=== PATIENT | female | born 1960 | race Caucasian/White ===

== ENCOUNTER → 2023-06-12 11:33 | Outpatient (CLI) | payer OTHER, SELFPAY ==
[2023-06-12 11:55] LABS: Hematocrit 38.1 % (36-46); Hemoglobin 12.9 g/dL (12.0-16.0); Mean Corpuscular HGB Conc 33.9 % (30-36); Mean Corpuscular Hemoglobin 30.4 PG (26-34); Mean Corpuscular Volume 89.6 fL (80-100); Platelet Count 211 X10^3/uL (150-400); Red Blood Cell Count 4.26 X10^6/uL (4.0-5.2); Red Cell Distribution Width 14.1 % (11.6-14.8)
[2023-06-12 12:12] LABS: Alanine Aminotransferase 34 IU/L (<35); Albumin 4.4 g/dL (3.5-5.0); Albumin Globulin Ratio 1.3 (1.0-2.8); Alkaline Phosphatase 63 U/L (38-126); Aspartate Aminotransferase 44 IU/L (14-36); BUN Creatinine Ratio 26.6 (6-22); Bilirubin Total 0.5 mg/dL (0.2-1.3); Blood Urea Nitrogen 21 mg/dL (7-17); Carbon Dioxide 31 mmol/L (22-32); Chloride 103 mmol/L (98-107); Cholesterol 167 mg/dL (140-199); Estimated Glomerular Filt Rate > 60 mL/min (>60); Globulin 3.3 g/dL (1.7-4.1); Glucose 98 mg/dL (80-110); HDL Cholesterol 75 mg/dL (40-60); HEMOLYSIS < 15 (0-50); LDL Cholesterol Calculated 71 mg/dL (<100); Potassium 4.3 mmol/L (3.4-5.1); Sodium 140 mmol/L (137-145); Total Protein 7.7 g/dL (6.3-8.2); Triglycerides 105 mg/dL (35-150)
[2023-06-12 12:38] LABS: TSH w/ Reflex to FT4 2.19 uIU/mL (0.47-4.68)
[2023-06-14 16:36] LABS: Lamotrigine Lamictal 9.3 ug/mL (2.0-20.0)
== END ==
LOC: LAB 11:34
PROVIDERS: PCP Internal Medicine; Referring Provider Internal Medicine; Visit Provider Internal Medicine
DX: E78.2 Mixed hyperlipidemia (principal); G40.909 Epilepsy, unspecified, not intractable, without status epilepticus
CPT/HCPCS: 36415; 80053; 80061; 80175; 84443; 85027

== ENCOUNTER → 2024-07-30 15:33 | Outpatient (CLI) | payer OTHER, SELFPAY ==
[2024-07-30 15:45] LABS: Hematocrit 38.3 % (36-46); Hemoglobin 12.8 g/dL (12.0-16.0); Mean Corpuscular HGB Conc 33.3 % (30-36); Mean Corpuscular Hemoglobin 29.4 PG (26-34); Mean Corpuscular Volume 88.1 fL (80-100); Platelet Count 199 X10^3/uL (150-400); Red Blood Cell Count 4.35 X10^6/uL (4.0-5.2); Red Cell Distribution Width 14.4 % (11.6-14.8); White Blood Cell Count 5.5 X10^3/uL (4.5-11.0)
[2024-07-30 16:29] LABS: Alanine Aminotransferase 21 IU/L (<35); Albumin 4.3 g/dL (3.5-5.0); Albumin Globulin Ratio 1.7 (1.0-2.8); Alkaline Phosphatase 71 U/L (38-126); Aspartate Aminotransferase 29 IU/L (14-36); BUN Creatinine Ratio 19.8 (6-22); Bilirubin Total 0.5 mg/dL (0.2-1.3); Blood Urea Nitrogen 17 mg/dL (7-17); Calcium 9.9 mg/dL (8.4-10.2); Carbon Dioxide 29 mmol/L (22-32); Chloride 104 mmol/L (98-107); Cholesterol 153 mg/dL (140-199); Estimated Glomerular Filt Rate > 60 mL/min (>60); Globulin 2.6 g/dL (1.7-4.1); Glucose 105 mg/dL (80-110); HDL Cholesterol 77 mg/dL (40-60); HEMOLYSIS < 15 (0-50); LDL Cholesterol Calculated 65 mg/dL (<100); Sodium 141 mmol/L (137-145); Total Protein 6.9 g/dL (6.3-8.2); Triglycerides 57 mg/dL (35-150)
== END ==
LOC: LAB 15:34
PROVIDERS: PCP Internal Medicine; Referring Provider Internal Medicine; Visit Provider Internal Medicine
DX: E78.2 Mixed hyperlipidemia (principal); G40.909 Epilepsy, unspecified, not intractable, without status epilepticus
CPT/HCPCS: 36415; 80053; 80061; 80175; 85027

== ENCOUNTER → 2024-09-30 16:53 | Outpatient (CLI) | payer OTHER, SELFPAY ==
[2024-09-30 18:05] LABS: Hematocrit 32.1 % (36-46); Hemoglobin 10.8 g/dL (12.0-16.0); Mean Corpuscular HGB Conc 33.5 % (30-36); Mean Corpuscular Hemoglobin 28.1 PG (26-34); Mean Corpuscular Volume 83.9 fL (80-100); Platelet Count 350 X10^3/uL (150-400); Red Blood Cell Count 3.83 X10^6/uL (4.0-5.2); Red Cell Distribution Width 14.1 % (11.6-14.8); White Blood Cell Count 15.2 X10^3/uL (4.5-11.0)
[2024-09-30 18:23] LABS: Alanine Aminotransferase 20 IU/L (<35); Albumin 3.5 g/dL (3.5-5.0); Albumin Globulin Ratio 1.2 (1.0-2.8); Alkaline Phosphatase 115 U/L (38-126); Aspartate Aminotransferase 29 IU/L (14-36); Bilirubin Total 0.6 mg/dL (0.2-1.3); Blood Urea Nitrogen 17 mg/dL (7-17); Calcium 9.8 mg/dL (8.4-10.2); Carbon Dioxide 27 mmol/L (22-32); Chloride 96 mmol/L (98-107); Estimated Glomerular Filt Rate > 60 mL/min (>60); Glucose 112 mg/dL (70-99); HEMOLYSIS < 15 (0-50); Potassium 3.8 mmol/L (3.4-5.1); Sodium 135 mmol/L (137-145); Total Protein 6.5 g/dL (6.3-8.2)
[2024-09-30 18:40] LABS: C-Reactive Protein Quant 21.6 mg/dL (<1.0)
[2024-09-30 18:42] LABS: Erythrocyte Sedimentation Rate 70 MM/HR (0-20)
[2024-09-30 19:02] LABS: TSH w/ Reflex to FT4 2.36 uIU/mL (0.47-4.68)
[2024-10-05 10:36] LABS: Lamotrigine Lamictal 12.8 ug/mL (2.0-20.0)
== END ==
PROVIDERS: PCP Internal Medicine; Referring Provider Internal Medicine; Visit Provider Internal Medicine
DX: R11.2 Nausea with vomiting, unspecified (principal); G40.909 Epilepsy, unspecified, not intractable, without status epilepticus
CPT/HCPCS: 36415; 80053; 80175; 84443; 85027; 85651; 86140

== ENCOUNTER → 2024-10-06 10:07 | Outpatient (CLI) | payer OTHER, SELFPAY ==
[2024-10-06 11:09] LABS: Add Manual Diff / Slide Review NO; Basophils Absolute Auto 0 /uL (0-100); Basophils Percent Auto 0.2 % (0-2); Eosinophils Absolute Auto 0 /uL (0-450); Eosinophils Percent Auto 0.1 % (2-4); Hematocrit 31.2 % (36-46); Hemoglobin 10.7 g/dL (12.0-16.0); Lymphocytes Absolute Auto 800 /uL (1100-4500); Lymphocytes Percent Auto 5.6 % (25-40); Mean Corpuscular HGB Conc 34.2 % (30-36); Mean Corpuscular Hemoglobin 28.6 PG (26-34); Mean Corpuscular Volume 83.8 fL (80-100); Monocytes Absolute Auto 800 /uL (0-900); Monocytes Percent Auto 5.5 % (3-14); Neutrophils Absolute Auto 13200 /uL (1500-7000); Neutrophils Percent Auto 88.6 % (50-75); Platelet Count 319 X10^3/uL (150-400); Red Blood Cell Count 3.72 X10^6/uL (4.0-5.2); Red Cell Distribution Width 14.3 % (11.6-14.8)
[2024-10-06 11:22] LABS: Alanine Aminotransferase 25 IU/L (<35); Albumin 3.2 g/dL (3.5-5.0); Albumin Globulin Ratio 1.1 (1.0-2.8); Alkaline Phosphatase 99 U/L (38-126); Aspartate Aminotransferase 32 IU/L (14-36); BUN Creatinine Ratio 16.7 (6-22); Bilirubin Total 0.6 mg/dL (0.2-1.3); Blood Urea Nitrogen 14 mg/dL (7-17); Calcium 9.4 mg/dL (8.4-10.2); Carbon Dioxide 31 mmol/L (22-32); Chloride 96 mmol/L (98-107); Estimated Glomerular Filt Rate > 60 mL/min (>60); Globulin 2.8 g/dL (1.7-4.1); Glucose 116 mg/dL (70-99); HEMOLYSIS < 15 (0-50); Potassium 3.3 mmol/L (3.4-5.1); Sodium 136 mmol/L (137-145)
[2024-10-06 11:23] LABS: Erythrocyte Sedimentation Rate 72 MM/HR (0-20); Lipase 46 U/L (23-300)
[2024-10-06 11:40] LABS: C-Reactive Protein Quant 14.1 mg/dL (<1.0)
== END ==
PROVIDERS: PCP Internal Medicine; Referring Provider Internal Medicine; Visit Provider Internal Medicine
DX: D72.829 Elevated white blood cell count, unspecified (principal); R11.2 Nausea with vomiting, unspecified
CPT/HCPCS: 36415; 80053; 83690; 85025; 85651; 86140

== ENCOUNTER → 2024-10-06 12:06 | Outpatient (CLI) | payer OTHER, SELFPAY ==
--- NOTE | 2024-10-06 12:07 | DI.CT.S_ITS ---
PROCEDURE: CT ABDOMEN PELVIS W CON INDICATIONS: abd pain TECHNIQUE: After the administration of intravenous contrast, axial sections acquired from the lung bases to the pubic symphysis. Coronal and sagittal reformats were performed. For radiation dose reduction, the following was used: automated exposure control, adjustment of mA and/or kV according to patient size. COMPARISON: Outside Facility, CT, CT ABDOMEN PELVIS W CON, 08/25/2024, 14:58. FINDINGS: Image quality: Diagnostic. Lower Chest: No significant findings. ABDOMEN: Liver: Steatosis. Stable low-attenuation focus. Gallbladder: Luminal stone without wall thickening. Biliary ducts: No biliary dilation. Pancreas: No ductal dilation. Spleen: Size is within normal limits. Adrenal Glands: No adrenal nodules. Kidneys and Ureters: Simple right renal cyst. In the interval since the prior exam, there is been development of moderate left hydronephrosis. There is prominence of the proximal ureter. Is a ureter extends into the pelvis, there is confluent areas of soft tissue density suspected to represent bowel loops. There is an area of 2 mm calcification which corresponds to location of ureter on the 08/25/2024 exam. Stomach and Bowel: There is appearance of mild thickening in the distal sigmoid colon. >> Peritoneum: No abnormal intraperitoneal fluid. No free air. Ventral Wall: No significant ventral hernia. Abdominal Nodes: No retroperitoneal or mesenteric adenopathy by size criteria. Vessels: Aorta and inferior vena cava are normal in size. PELVIS: Pelvic Organs: Unremarkable. Bladder: No bladder wall thickening, accounting for underdistention. Pelvic Nodes: No enlarged lymph nodes. Miscellaneous: No inguinal hernias are seen. Bones: No aggressive osseous abnormality. IMPRESSION: Interval development of left hydronephrosis and proximal hydroureter. Within the left pelvic sidewall there is confluent soft tissue density appearing to be most reflective of nondistended bowel loops. Oral contrast is not present within this region for better delineation of bowel loops or less likely development of new underlying mass. There is a 2 mm focus of calcification new compared to prior exam within this region suspected to represent ureteral stone. Recommend correlation to symptoms and laboratory values for possible ureteral calculus. In addition, mild thickening is present of the distal sigmoid possibly secondary to incomplete distention given normal appearance on 08/25/[address]24 CT. Dictated by: Syeda Anderson M.D. on 10/06/2024 at 14:52 Approved by: Syeda Anderson M.D. on 10/06/2024 at 15:00
== END ==
PROVIDERS: PCP Internal Medicine; Referring Provider Internal Medicine; Visit Provider Internal Medicine
DX: N13.30 Unspecified hydronephrosis (principal); K76.0 Fatty (change of) liver, not elsewhere classified; N28.1 Cyst of kidney, acquired; D72.829 Elevated white blood cell count, unspecified; R11.2 Nausea with vomiting, unspecified
CPT/HCPCS: 36415; 74177; 80053; 83690; 85025; 85651; 86140; Q9967

== ENCOUNTER 2024-10-09 11:46 | Day surgery (SDC) | payer OTHER, SELFPAY ==
--- NOTE | 2024-10-09 | PATH_ITS ---
[facility] Accession Number: [id number] No. of containers..02 Tissue . 01 Material submitted: . PART A: gastrointestinal site - GASTRIC, ANTRAL PART B: gastrointestinal site - GASTRIC, CORPUS . 01 Diagnosis: Part A: GASTRIC, ANTRAL: Gastric mucosa with minimal chronic inflammation. No Helicobacter organisms identified. No intestinal metaplasia, dysplasia, or malignancy identified. . Part B: GASTRIC, CORPUS: Gastric mucosa with no diagnostic alterations. No Helicobacter organisms identified on H/E stain. No intestinal metaplasia, dysplasia, or malignancy identified. STO 10/15/2024 1305 Local . 01 Electronically signed: . Isaiah Gallagher MD, Pathologist NPI- [id number] . 01 Gross description: . Part A: GASTRIC, ANTRAL: Received in formalin are 3 fragment(s) of sharpe, soft tissue measuring 0.1 x 0.1 x 0.1 cm to 0.3 x 0.3 x 0.2 cm submitted entirely in 1 cassette(s) . Part B: GASTRIC, CORPUS: Received in formalin are 3 fragment(s) of sharpe, soft tissue measuring 0.2 x 0.2 x 0.2 cm to 0.4 x 0.3 x 0.2 cm submitted entirely in 1 cassette(s) /JUAN RAMON 10/15/2024 1305 Local . 01 Microscopic: . Part A: GASTRIC, ANTRAL: An immunohistochemical stain was performed to evaluate for Helicobacter organisms and is negative. The control stains appropriately. * This test was developed and the performance characteristics were validated by [facility]. It has not been cleared or approved by the Food and Drug Administration. . 01 Pathologist provided ICD-10: K29.30 . 01 CPT . 000389, 102232, [id number] Specimen Comment: A courtesy copy of this report has been sent to [facility]ology Performed at: [address] [address] [address] [address] [facility], [place], [place] [id number] MD Isaiah Gallagher MD Phone: [phone]
[2024-10-09 12:28] VITALS: BP 110/66; PULSE 97; RESP 16; TEMP 36.7; O2SAT 95
[2024-10-09] MEDS: LACTATED RINGERS 1,000 ML 42 ML IV (12:42)
--- NOTE | 2024-10-09 13:18 | PM.PREOP ---
Pre-operative Note COVID-19 COVID-19 status: Not tested Interval Note History & Physical reviewed/Exam performed by Physician: Yes Changes to H&P: No H&P completed within 30 days and has changed as indicated here:: Yes ASA Class (for procedural sedation): III
[2024-10-09 13:49] VITALS: BP 98/65; PULSE 84; RESP 16; TEMP 36.4; O2SAT 97
--- NOTE | 2024-10-09 13:56 | PM.OP.1 ---
Operative Date/Time/Diagnoses Date of procedure: 10/09/24 Time of procedure: 13:00 Pre-op diagnosis: Unexplained weight loss. Colonoscopy 5 months ago. Post-op diagnosis: same Procedure & Clinicians Procedure: EGD with gastric biopsies Same procedure as scheduled: Yes Indications: Unexplained weight loss Surgeon: Saúl Izquierdo Yes if Unassisted: Yes Anesthesia Type: MAC +/- Operative Notes Findings: Antral gastric rugal flattening. Bile pooling in stomach. Gastric corpus and antrum with evidence of gastritis. Closure Type: not applicable Estimated Blood Loss (mL): 2 Blood products transfused: none Procedure in detail: After obtaining informed consent properly identifying the patient, the patient was transported to the endo suite and was placed on the gurney in the left lateral decubitus position. Time-out protocol was observed. IV sedation was administered and when an adequate level of sedation was reached the procedure was commenced. A bite block was placed between the patient's incisors and a fiberoptic flexible upper endoscope was passed under direct endoscopic vision into the upper esophagus, stomach and duodenal. Exam was performed retrograde. Duodenal was visualized through its 3rd portion. There were no ulcerations, polyps or other abnormalities. The 2nd portion of the duodenal was similarly normal. The duodenal bulb was without evidence of mucosal abnormality. Scope was withdrawn into the stomach. Gastric rugal folds were markedly flattened over the antrum and a series of random biopsies of the antral mucosa were taken. There were no ulcers of the antrum or gastric corpus. A pool of bile was aspirated from the gastric corpus and another series of random biopsies of the mucosa at the gastric corpus were taken. The scope was retroflexed and the gastric fundus and GE junction were identified. There were no abnormalities here. The GE junction and Z-line were at 36 cm from the incisors, were circumferential and there was no indication of erosion or other injury from reflux. The distal mid and upper esophagus were without evidence of mucosal abnormality as the scope was withdrawn. The patient tolerated the procedure well and was transported to the recovery room in good condition. Complications: none Post-operative Condition: stable Disposition: PACU Plan for aftercare: Discharged to home. Endoscopic findings are potentially consistent with delayed gastric emptying with bile reflux gastritis. A gastric emptying study will be ordered through my office and the patient will follow up with me for review of pathology from the biopsies and results of the gastric emptying study.
[2024-10-09 14:00] VITALS: BP 112/66; PULSE 84; RESP 16; O2SAT 97
[2024-10-09 14:05] VITALS: BP 104/72; PULSE 71; RESP 21; O2SAT 96
== END 2024-10-09 14:14 | disposition home or self-care (01) ==
PROVIDERS: PCP Internal Medicine; Referring Provider Surgery; Visit Provider Surgery
PROC: 0DJ08ZZ Inspection of Upper Intestinal Tract, Via Natural or Artificial Opening Endoscopic (ICD-10-PCS; CPT 43239; principal; 2024-10-09 13:15)
DX: R63.4 Abnormal weight loss (principal); K29.50 Unspecified chronic gastritis without bleeding
CPT/HCPCS: 43239; J2704

== ENCOUNTER → 2024-10-12 15:05 | Outpatient (CLI) | payer OTHER, SELFPAY ==
[2024-10-12 15:32] LABS: Hematocrit 29.9 % (36-46); Hemoglobin 10.1 g/dL (12.0-16.0); Mean Corpuscular HGB Conc 33.9 % (30-36); Mean Corpuscular Hemoglobin 28.4 PG (26-34); Mean Corpuscular Volume 83.7 fL (80-100); Platelet Count 329 X10^3/uL (150-400); Red Blood Cell Count 3.57 X10^6/uL (4.0-5.2); Red Cell Distribution Width 14.9 % (11.6-14.8); White Blood Cell Count 14.9 X10^3/uL (4.5-11.0)
[2024-10-12 15:52] LABS: Alanine Aminotransferase 41 IU/L (<35); Albumin 3.3 g/dL (3.5-5.0); Alkaline Phosphatase 106 U/L (38-126); Aspartate Aminotransferase 46 IU/L (14-36); BUN Creatinine Ratio 15.5 (6-22); Bilirubin Total 0.6 mg/dL (0.2-1.3); Blood Urea Nitrogen 13 mg/dL (7-17); Calcium 9.2 mg/dL (8.4-10.2); Carbon Dioxide 32 mmol/L (22-32); Chloride 98 mmol/L (98-107); Estimated Glomerular Filt Rate > 60 mL/min (>60); Globulin 3.3 g/dL (1.7-4.1); Glucose 116 mg/dL (70-99); HEMOLYSIS < 15 (0-50); Potassium 3.4 mmol/L (3.4-5.1); Sodium 137 mmol/L (137-145); Total Protein 6.6 g/dL (6.3-8.2)
== END ==
LOC: LAB 15:07
PROVIDERS: PCP Internal Medicine; Referring Provider Internal Medicine; Visit Provider Internal Medicine
DX: R11.2 Nausea with vomiting, unspecified (principal); R10.9 Unspecified abdominal pain
CPT/HCPCS: 36415; 80053; 85027

== ENCOUNTER → 2024-11-02 09:34 | Outpatient (CLI) | payer OTHER, SELFPAY ==
[2024-11-02 10:34] LABS: Hematocrit 31.5 % (36-46); Hemoglobin 10.5 g/dL (12.0-16.0); Mean Corpuscular HGB Conc 33.3 % (30-36); Mean Corpuscular Hemoglobin 28.1 PG (26-34); Mean Corpuscular Volume 84.4 fL (80-100); Platelet Count 297 X10^3/uL (150-400); Red Blood Cell Count 3.73 X10^6/uL (4.0-5.2); Red Cell Distribution Width 16.8 % (11.6-14.8); White Blood Cell Count 9.6 X10^3/uL (4.5-11.0)
[2024-11-02 11:02] LABS: Alanine Aminotransferase 19 IU/L (<35); Albumin Globulin Ratio 1.3 (1.0-2.8); Alkaline Phosphatase 111 U/L (38-126); Aspartate Aminotransferase 27 IU/L (14-36); BUN Creatinine Ratio 12.8 (6-22); Bilirubin Total 0.6 mg/dL (0.2-1.3); Blood Urea Nitrogen 11 mg/dL (7-17); C-Reactive Protein Quant < 0.5 mg/dL (<1.0); Calcium 9.8 mg/dL (8.4-10.2); Carbon Dioxide 29 mmol/L (22-32); Chloride 101 mmol/L (98-107); Estimated Glomerular Filt Rate > 60 mL/min (>60); Glucose 109 mg/dL (70-99); HEMOLYSIS < 15 (0-50); Potassium 3.6 mmol/L (3.4-5.1); Sodium 140 mmol/L (137-145)
[2024-11-02 11:04] LABS: Erythrocyte Sedimentation Rate 59 MM/HR (0-20)
[2024-11-04 12:09] LABS: ANA Screen, IFA Negative (.)
== END ==
PROVIDERS: PCP Internal Medicine; Referring Provider Internal Medicine; Visit Provider Internal Medicine
DX: K59.01 Slow transit constipation (principal); R11.2 Nausea with vomiting, unspecified; D72.829 Elevated white blood cell count, unspecified
CPT/HCPCS: 36415; 80053; 85027; 85651; 86038; 86140

== ENCOUNTER → 2024-12-25 10:28 | Outpatient (CLI) | payer OTHER, SELFPAY ==
[2024-12-25 11:07] LABS: Appearance Urine UA SL CLOUDY; Bilirubin Urine UA NEGATIVE (NEGATIVE); Color Urine UA YELLOW; Glucose Urine UA NEGATIVE (Negative); Ketones Urine UA NEGATIVE (NEGATIVE); Leukocyte Esterase Urine UA 2+ (NEGATIVE); Nitrite Urine UA POSITIVE (Negative); Occult Blood Urine UA TRACE-INTACT (Negative); Protein Urine UA NEGATIVE (Negative); Specific Gravity Urine UA <=1.005 (1.000-1.035); Urobilinogen Urine UA 0.2 E.U./dL (0.2); pH Urine UA 6.0 (4.5-8.0)
[2024-12-25 11:14] LABS: Culture Indicated Urine Specimen Cultured
== END ==
PROVIDERS: PCP Internal Medicine; Referring Provider Internal Medicine; Visit Provider Internal Medicine
DX: R30.0 Dysuria (principal)
CPT/HCPCS: 81001; 87077; 87086; 87186